=== PATIENT | female | born 1995 | race African-American/Black ===

== ENCOUNTER 2017-05-09 12:58 | Emergency (ER) | payer MEDICAID ==
[~2017-05-09] VITALS: Ht 160 cm; Wt 61.0 kg
[2017-05-09] MEDS ORDERED: ACETAMINOPHEN 325MG TABLET PO STA (22:46)
[2017-05-09 23:05] LABS: CLARITY URINE CLOUDY (CLEAR); COLOR URINE YELLOW (YELLOW); KETONES URINE NEGATIVE (NEGATIVE); LEUKOCYTE ESTERASE URINE 3+ (NEGATIVE); NITRITE URINE NEGATIVE (NEGATIVE); OCCULT BLOOD URINE 1+ (NEGATIVE); PROTEIN URINE NEGATIVE (NEGATIVE); SPECIFIC GRAVITY URINE 1.024 (1.005-1.030)
[2017-05-09 23:08] LABS: BASOPHILS % 0.4 % (0.0-2.0); EOSINOPHILS % 0.6 % (0.0-5.0); HEMATOCRIT. 39.7 % (36.0-48.0); HEMOGLOBIN. 12.6 g/dL (12.0-16.0); LYMPHOCYTES % 53.8 % (20.0-50.0); MEAN CORPUSCULAR HEMOGLOBIN 23.6 pg (28.0-32.0); MEAN CORPUSCULAR VOLUME 74.2 fL (81.0-99.0); MEAN PLATELET VOLUME 8.7 fl (7.4-10.4); MONOCYTES % 8.3 % (2.0-8.0); NEUTROPHILS % 36.9 % (40.0-76.0); PLATELET 241 x1000/uL (130-400); RED BLOOD CELL COUNT 5.35 mill/uL (4.2-5.4); RED CELL DISTRIBUTION WIDTH 13.7 % (11.6-14.6)
[2017-05-09 23:15] LABS: CHLORIDE 109 mEq/L (98-107)
[2017-05-09 23:24] LABS: CARBON DIOXIDE 24 mEq/L (21-32)
[2017-05-10 00:24] VITALS: BP 127/89
[2017-05-10] MEDS ORDERED: CEFTRIAXONE SODIUM 250 MG/VIAL IM ONE (00:45)
[2017-05-10] MEDS ORDERED: AZITHROMYCIN 500 MG TABLET PO ONE (00:45)
[2017-05-10] MEDS ORDERED: ONDANSETRON HCL 4MG/2ML VIAL IM ONE (01:45)
[2017-05-12 04:13] LABS: CHLAMYDIA TRACHOMATIS NAA Negative (Negative); NEISSERIA GONORRHOEAE NAA Negative (Negative)
== END 2017-05-10 03:37 | disposition home or self-care (01) ==
LOC: ER 14:32
DX: N76.0 Acute vaginitis (principal); B96.89 Other specified bacterial agents as the cause of diseases classified elsewhere; N39.0 Urinary tract infection, site not specified; F12.10 Cannabis abuse, uncomplicated
CPT/HCPCS: 36415; 76856; 80053; 81001; 81025; 85025; 87210; 87491; 87591; 96372; 99285; J0696; J2405; Z7610

== ENCOUNTER 2018-06-28 22:12 | Emergency (ER) | payer MEDICAID ==
[~2018-06-28] VITALS: Ht 160 cm; Wt 66.3 kg
[2018-06-29] MEDS ORDERED: PENICILLIN G BENZATHINE 1,200,000 UNITS/2ML SYR IM ONE (04:00)
[2018-06-29] MEDS ORDERED: LIDOCAINE HCL 1% 20ML VIAL (Pyxis) INJ INFIL ONE (04:00)
[2018-06-29 05:18] VITALS: BP 114/81
[2018-07-02 19:06] LABS: *HSV 1 DNA PCR Negative (Negative); *HSV 2 DNA PCR Negative (Negative)
== END 2018-06-29 05:21 | disposition home or self-care (01) ==
LOC: ER 22:12
DX: A63.8 Other specified predominantly sexually transmitted diseases (principal); A53.9 Syphilis, unspecified
CPT/HCPCS: 86592; 87529; 96372; 99283; J0561; J3490; Z7610